=== PATIENT | female | born 1955 | race Caucasian/White ===

== ENCOUNTER 2021-08-15 09:26 | Outpatient (CLI) | payer MEDICARE | END 2021-08-15 09:27 | disposition home or self-care (01) | LOC: CSHWCC 09:26 | PROVIDERS: ATTEND Nurse Practitioner Family | DX: I87.332 Chronic venous hypertension (idiopathic) with ulcer and inflammation of left lower extremity (principal); L97.322 Non-pressure chronic ulcer of left ankle with fat layer exposed; R60.0 Localized edema; I87.331 Chronic venous hypertension (idiopathic) with ulcer and inflammation of right lower extremity; L97.312 Non-pressure chronic ulcer of right ankle with fat layer exposed | CPT/HCPCS: 97139; G0463; 99213 ==

== ENCOUNTER 2021-08-29 09:16 | Outpatient (CLI) | payer MEDICARE | END 2021-08-29 09:17 | disposition home or self-care (01) | LOC: CSHWCC 09:16 | PROVIDERS: ATTEND Nurse Practitioner Family | DX: I87.333 Chronic venous hypertension (idiopathic) with ulcer and inflammation of bilateral lower extremity (principal); L97.322 Non-pressure chronic ulcer of left ankle with fat layer exposed; L97.312 Non-pressure chronic ulcer of right ankle with fat layer exposed; R60.0 Localized edema ==

== ENCOUNTER 2021-09-12 10:48 | Outpatient (CLI) | payer MEDICARE | END 2021-09-12 10:49 | disposition home or self-care (01) | LOC: CSHWCC 10:48 | PROVIDERS: ATTEND Nurse Practitioner Family | DX: I87.332 Chronic venous hypertension (idiopathic) with ulcer and inflammation of left lower extremity (principal); L97.322 Non-pressure chronic ulcer of left ankle with fat layer exposed; R60.0 Localized edema ==

== ENCOUNTER 2021-10-03 10:43 | Outpatient (CLI) | payer MEDICARE | END 2021-10-03 10:44 | disposition home or self-care (01) | LOC: CSHWCC 10:43 | PROVIDERS: ATTEND Nurse Practitioner Family | DX: I87.333 Chronic venous hypertension (idiopathic) with ulcer and inflammation of bilateral lower extremity (principal); L97.322 Non-pressure chronic ulcer of left ankle with fat layer exposed; L97.312 Non-pressure chronic ulcer of right ankle with fat layer exposed; R60.0 Localized edema ==

== ENCOUNTER 2021-10-24 10:27 | Outpatient (CLI) | payer MEDICARE | END 2021-10-24 10:28 | disposition home or self-care (01) | LOC: CSHWCC 10:27 | PROVIDERS: ATTEND Nurse Practitioner Family | DX: I87.333 Chronic venous hypertension (idiopathic) with ulcer and inflammation of bilateral lower extremity (principal); L97.312 Non-pressure chronic ulcer of right ankle with fat layer exposed; L97.322 Non-pressure chronic ulcer of left ankle with fat layer exposed; R60.0 Localized edema ==

== ENCOUNTER 2021-11-21 10:33 | Outpatient (CLI) | payer MEDICARE | END 2021-11-21 10:34 | disposition home or self-care (01) | LOC: CSHWCC 10:33 | PROVIDERS: ATTEND Nurse Practitioner Family | DX: I87.332 Chronic venous hypertension (idiopathic) with ulcer and inflammation of left lower extremity (principal); L97.322 Non-pressure chronic ulcer of left ankle with fat layer exposed; R60.0 Localized edema | CPT/HCPCS: 99213; G0463 ==

== ENCOUNTER 2021-12-19 10:26 | Outpatient (CLI) | payer MEDICARE | END 2021-12-19 10:27 | disposition home or self-care (01) | LOC: CSHWCC 10:26 | PROVIDERS: ATTEND Preventive Medicine Undersea and Hyperbaric Medicine | DX: I87.332 Chronic venous hypertension (idiopathic) with ulcer and inflammation of left lower extremity (principal); L97.322 Non-pressure chronic ulcer of left ankle with fat layer exposed; R60.0 Localized edema ==

== ENCOUNTER 2023-03-19 11:22 | Outpatient (CLI) | payer MEDICARE | END 2023-03-19 11:23 | disposition home or self-care (01) | LOC: CSHWCC 11:22 | PROVIDERS: ATTEND Nurse Practitioner Family | DX: I87.312 Chronic venous hypertension (idiopathic) with ulcer of left lower extremity (principal); I70.243 Atherosclerosis of native arteries of left leg with ulceration of ankle; L03.116 Cellulitis of left lower limb; I73.9 Peripheral vascular disease, unspecified; L97.929 Non-pressure chronic ulcer of unspecified part of left lower leg with unspecified severity | CPT/HCPCS: 87070; 87077; 87186; 87205; G0463; 99214 ==

== ENCOUNTER 2023-03-26 11:45 | Outpatient (CLI) | payer MEDICARE | END 2023-03-26 11:46 | disposition home or self-care (01) | LOC: CSHWCC 11:45 | PROVIDERS: ATTEND Preventive Medicine Undersea and Hyperbaric Medicine | DX: I70.243 Atherosclerosis of native arteries of left leg with ulceration of ankle (principal); I87.312 Chronic venous hypertension (idiopathic) with ulcer of left lower extremity; L97.929 Non-pressure chronic ulcer of unspecified part of left lower leg with unspecified severity; L03.116 Cellulitis of left lower limb | CPT/HCPCS: 99213; G0463 ==

== ENCOUNTER 2023-04-15 13:52 | Outpatient (CLI) | payer MEDICARE | END 2023-04-15 13:53 | disposition home or self-care (01) | LOC: CSHWCC 13:52 | PROVIDERS: ATTEND Nurse Practitioner Family | DX: I87.312 Chronic venous hypertension (idiopathic) with ulcer of left lower extremity (principal); L97.929 Non-pressure chronic ulcer of unspecified part of left lower leg with unspecified severity; I70.243 Atherosclerosis of native arteries of left leg with ulceration of ankle; I70.212 Atherosclerosis of native arteries of extremities with intermittent claudication, left leg | CPT/HCPCS: 11043; 11046 ==

== ENCOUNTER 2023-04-23 14:23 | Outpatient (CLI) | payer MEDICARE | END 2023-04-23 14:24 | disposition home or self-care (01) | LOC: CSHWCC 14:23 | PROVIDERS: ATTEND Nurse Practitioner Family | DX: I87.312 Chronic venous hypertension (idiopathic) with ulcer of left lower extremity (principal); I70.243 Atherosclerosis of native arteries of left leg with ulceration of ankle; L97.929 Non-pressure chronic ulcer of unspecified part of left lower leg with unspecified severity | CPT/HCPCS: 97597; 97598 ==

== ENCOUNTER 2023-04-30 13:04 | Outpatient (CLI) | payer MEDICARE | END 2023-04-30 13:05 | disposition home or self-care (01) | LOC: CSHWCC 13:04 | PROVIDERS: ATTEND Nurse Practitioner Family | DX: I87.312 Chronic venous hypertension (idiopathic) with ulcer of left lower extremity (principal); I70.243 Atherosclerosis of native arteries of left leg with ulceration of ankle; L97.929 Non-pressure chronic ulcer of unspecified part of left lower leg with unspecified severity | CPT/HCPCS: 11043; 11046 ==

== ENCOUNTER 2023-05-07 15:05 | Outpatient (CLI) | payer MEDICARE | END 2023-05-07 15:06 | disposition home or self-care (01) | LOC: CSHWCC 15:05 | PROVIDERS: ATTEND Nurse Practitioner Family | DX: I87.312 Chronic venous hypertension (idiopathic) with ulcer of left lower extremity (principal); I70.243 Atherosclerosis of native arteries of left leg with ulceration of ankle; I70.212 Atherosclerosis of native arteries of extremities with intermittent claudication, left leg; L97.929 Non-pressure chronic ulcer of unspecified part of left lower leg with unspecified severity | CPT/HCPCS: 11042; 11045 ==

== ENCOUNTER 2023-06-04 17:12 | Outpatient (CLI) | payer MEDICARE | END 2023-06-04 17:13 | disposition home or self-care (01) | LOC: CSHWCC 17:12 | PROVIDERS: ATTEND Nurse Practitioner Family | DX: I70.243 Atherosclerosis of native arteries of left leg with ulceration of ankle (principal); I87.312 Chronic venous hypertension (idiopathic) with ulcer of left lower extremity | CPT/HCPCS: 11042; 11045 ==

== ENCOUNTER 2023-07-14 10:45 | Outpatient (CLI) | payer MEDICARE | END 2023-07-14 10:46 | disposition home or self-care (01) | LOC: CSHWCC 10:45 | PROVIDERS: ATTEND Family Medicine | DX: I87.312 Chronic venous hypertension (idiopathic) with ulcer of left lower extremity (principal); I70.243 Atherosclerosis of native arteries of left leg with ulceration of ankle; I73.9 Peripheral vascular disease, unspecified | CPT/HCPCS: 97597; 97598 ==

== ENCOUNTER 2023-07-17 13:06 | Outpatient (CLI) | payer MEDICARE | END 2023-07-17 13:07 | disposition home or self-care (01) | LOC: CSHWCC 13:06 | PROVIDERS: ATTEND Nurse Practitioner Family | DX: I87.312 Chronic venous hypertension (idiopathic) with ulcer of left lower extremity (principal); L97.929 Non-pressure chronic ulcer of unspecified part of left lower leg with unspecified severity; I70.243 Atherosclerosis of native arteries of left leg with ulceration of ankle | CPT/HCPCS: 29581 ==

== ENCOUNTER 2023-07-21 15:41 | Outpatient (CLI) | payer MEDICARE | END 2023-07-21 15:42 | disposition home or self-care (01) | LOC: CSHWCC 15:41 | PROVIDERS: ATTEND Nurse Practitioner Family | DX: I87.312 Chronic venous hypertension (idiopathic) with ulcer of left lower extremity (principal); L97.929 Non-pressure chronic ulcer of unspecified part of left lower leg with unspecified severity; I70.243 Atherosclerosis of native arteries of left leg with ulceration of ankle | CPT/HCPCS: 11042 ==

== ENCOUNTER 2023-07-28 10:55 | Outpatient (CLI) | payer MEDICARE | END 2023-07-28 10:56 | disposition home or self-care (01) | LOC: CSHWCC 10:55 | PROVIDERS: ATTEND Nurse Practitioner Family | DX: I87.312 Chronic venous hypertension (idiopathic) with ulcer of left lower extremity (principal); L97.929 Non-pressure chronic ulcer of unspecified part of left lower leg with unspecified severity; I70.243 Atherosclerosis of native arteries of left leg with ulceration of ankle | CPT/HCPCS: 11042 ==

== ENCOUNTER 2023-08-13 11:58 | Outpatient (CLI) | payer MEDICARE | END 2023-08-13 11:59 | disposition home or self-care (01) | LOC: CSHWCC 11:58 | PROVIDERS: ATTEND Nurse Practitioner Family | DX: I87.312 Chronic venous hypertension (idiopathic) with ulcer of left lower extremity (principal); I70.243 Atherosclerosis of native arteries of left leg with ulceration of ankle; I70.212 Atherosclerosis of native arteries of extremities with intermittent claudication, left leg | CPT/HCPCS: 11042 ==

== ENCOUNTER 2023-08-20 11:17 | Outpatient (CLI) | payer MEDICARE | END 2023-08-20 11:18 | disposition home or self-care (01) | LOC: CSHWCC 11:17 | PROVIDERS: ATTEND Nurse Practitioner Family | DX: I87.312 Chronic venous hypertension (idiopathic) with ulcer of left lower extremity (principal); L97.929 Non-pressure chronic ulcer of unspecified part of left lower leg with unspecified severity; I70.243 Atherosclerosis of native arteries of left leg with ulceration of ankle | CPT/HCPCS: 11042 ==

== ENCOUNTER 2023-08-27 12:53 | Outpatient (CLI) | payer MEDICARE | END 2023-08-27 12:54 | disposition home or self-care (01) | LOC: CSHWCC 12:53 | PROVIDERS: ATTEND Nurse Practitioner Family | DX: I70.243 Atherosclerosis of native arteries of left leg with ulceration of ankle (principal); I87.312 Chronic venous hypertension (idiopathic) with ulcer of left lower extremity; L97.329 Non-pressure chronic ulcer of left ankle with unspecified severity | CPT/HCPCS: 11042 ==

== ENCOUNTER 2023-09-03 11:34 | Outpatient (CLI) | payer MEDICARE | END 2023-09-03 11:35 | disposition home or self-care (01) | LOC: CSHWCC 11:34 | PROVIDERS: ATTEND Nurse Practitioner Family | DX: I70.243 Atherosclerosis of native arteries of left leg with ulceration of ankle (principal); I87.312 Chronic venous hypertension (idiopathic) with ulcer of left lower extremity; L97.329 Non-pressure chronic ulcer of left ankle with unspecified severity | CPT/HCPCS: 11042 ==

== ENCOUNTER 2023-09-09 11:46 | Outpatient (CLI) | payer MEDICARE | END 2023-09-09 11:47 | disposition home or self-care (01) | LOC: CSHWCC 11:46 | PROVIDERS: ATTEND Nurse Practitioner Family | DX: I70.243 Atherosclerosis of native arteries of left leg with ulceration of ankle (principal); I87.312 Chronic venous hypertension (idiopathic) with ulcer of left lower extremity; L97.322 Non-pressure chronic ulcer of left ankle with fat layer exposed | CPT/HCPCS: 11042 ==

== ENCOUNTER 2023-09-17 14:36 | Outpatient (CLI) | payer MEDICARE | END 2023-09-17 14:37 | disposition home or self-care (01) | LOC: CSHWCC 14:36 | PROVIDERS: ATTEND Nurse Practitioner Family | DX: I70.243 Atherosclerosis of native arteries of left leg with ulceration of ankle (principal); I87.312 Chronic venous hypertension (idiopathic) with ulcer of left lower extremity; L97.322 Non-pressure chronic ulcer of left ankle with fat layer exposed | CPT/HCPCS: 11042 ==

== ENCOUNTER 2023-09-24 13:05 | Outpatient (CLI) | payer MEDICARE | END 2023-09-24 13:06 | disposition home or self-care (01) | LOC: CSHWCC 13:05 | PROVIDERS: ATTEND Nurse Practitioner Family | DX: I87.312 Chronic venous hypertension (idiopathic) with ulcer of left lower extremity (principal); I70.243 Atherosclerosis of native arteries of left leg with ulceration of ankle; L97.322 Non-pressure chronic ulcer of left ankle with fat layer exposed | CPT/HCPCS: 11042 ==

== ENCOUNTER 2023-10-01 14:16 | Outpatient (CLI) | payer MEDICARE | END 2023-10-01 14:17 | disposition home or self-care (01) | LOC: CSHWCC 14:16 | PROVIDERS: ATTEND Nurse Practitioner Family | DX: I87.312 Chronic venous hypertension (idiopathic) with ulcer of left lower extremity (principal); I70.243 Atherosclerosis of native arteries of left leg with ulceration of ankle; L97.322 Non-pressure chronic ulcer of left ankle with fat layer exposed; I70.212 Atherosclerosis of native arteries of extremities with intermittent claudication, left leg | CPT/HCPCS: 11042 ==

== ENCOUNTER 2023-10-08 10:41 | Outpatient (CLI) | payer MEDICARE | END 2023-10-08 10:42 | disposition home or self-care (01) | LOC: CSHWCC 10:41 | PROVIDERS: ATTEND Nurse Practitioner Family | DX: I87.312 Chronic venous hypertension (idiopathic) with ulcer of left lower extremity (principal); L97.322 Non-pressure chronic ulcer of left ankle with fat layer exposed; I70.243 Atherosclerosis of native arteries of left leg with ulceration of ankle | CPT/HCPCS: 11042 ==

== ENCOUNTER 2023-12-03 14:07 | Outpatient (CLI) | payer MEDICARE | END 2023-12-03 14:08 | disposition home or self-care (01) | LOC: CSHWCC 14:07 | PROVIDERS: ATTEND Nurse Practitioner Family | DX: I87.312 Chronic venous hypertension (idiopathic) with ulcer of left lower extremity (principal); L97.322 Non-pressure chronic ulcer of left ankle with fat layer exposed; I70.243 Atherosclerosis of native arteries of left leg with ulceration of ankle | CPT/HCPCS: 11042; 97605 ==

== ENCOUNTER 2023-12-09 09:59 | Outpatient (CLI) | payer MEDICARE | END 2023-12-09 10:00 | disposition home or self-care (01) | LOC: CSHWCC 09:59 | PROVIDERS: ATTEND Nurse Practitioner Family | DX: I70.243 Atherosclerosis of native arteries of left leg with ulceration of ankle (principal); I87.312 Chronic venous hypertension (idiopathic) with ulcer of left lower extremity; L97.322 Non-pressure chronic ulcer of left ankle with fat layer exposed | CPT/HCPCS: 11042; 97605 ==

== ENCOUNTER 2023-12-17 10:25 | Outpatient (CLI) | payer MEDICARE | END 2023-12-17 10:26 | disposition home or self-care (01) | LOC: CSHWCC 10:25 | PROVIDERS: ATTEND Nurse Practitioner Family | DX: I70.243 Atherosclerosis of native arteries of left leg with ulceration of ankle (principal); I87.312 Chronic venous hypertension (idiopathic) with ulcer of left lower extremity; L97.322 Non-pressure chronic ulcer of left ankle with fat layer exposed | CPT/HCPCS: 11042; 97605 ==

== ENCOUNTER 2023-12-24 12:48 | Outpatient (CLI) | payer MEDICARE | END 2023-12-24 12:49 | disposition home or self-care (01) | LOC: CSHWCC 12:48 | PROVIDERS: ATTEND Nurse Practitioner Family | DX: I70.243 Atherosclerosis of native arteries of left leg with ulceration of ankle (principal); I87.312 Chronic venous hypertension (idiopathic) with ulcer of left lower extremity; L97.322 Non-pressure chronic ulcer of left ankle with fat layer exposed | CPT/HCPCS: 11042; 11045; 87070; 87205; 97605 ==

== ENCOUNTER 2023-12-31 12:13 | Outpatient (CLI) | payer MEDICARE | END 2023-12-31 12:14 | disposition home or self-care (01) | LOC: CSHWCC 12:13 | PROVIDERS: ATTEND Nurse Practitioner Family | DX: I87.312 Chronic venous hypertension (idiopathic) with ulcer of left lower extremity (principal); I70.243 Atherosclerosis of native arteries of left leg with ulceration of ankle; L97.322 Non-pressure chronic ulcer of left ankle with fat layer exposed | CPT/HCPCS: 11042; 97605 ==

== ENCOUNTER 2024-01-07 11:31 | Outpatient (CLI) | payer MEDICARE | END 2024-01-07 11:32 | disposition home or self-care (01) | LOC: CSHWCC 11:31 | PROVIDERS: ATTEND Nurse Practitioner Family | DX: I87.312 Chronic venous hypertension (idiopathic) with ulcer of left lower extremity (principal); L97.322 Non-pressure chronic ulcer of left ankle with fat layer exposed; I70.243 Atherosclerosis of native arteries of left leg with ulceration of ankle | CPT/HCPCS: 11042 ==

== ENCOUNTER 2024-01-15 12:00 | Outpatient (CLI) | payer MEDICARE | END 2024-01-15 12:01 | disposition home or self-care (01) | LOC: CSHWCC 12:00 | PROVIDERS: ATTEND Nurse Practitioner Family | DX: I87.312 Chronic venous hypertension (idiopathic) with ulcer of left lower extremity (principal); L97.322 Non-pressure chronic ulcer of left ankle with fat layer exposed; I70.243 Atherosclerosis of native arteries of left leg with ulceration of ankle; L08.9 Local infection of the skin and subcutaneous tissue, unspecified | CPT/HCPCS: 11042; 87070; 87205; 97605; G0463; 99212 ==

== ENCOUNTER 2024-01-21 10:28 | Outpatient (CLI) | payer MEDICARE | END 2024-01-21 10:29 | disposition home or self-care (01) | LOC: CSHWCC 10:28 | PROVIDERS: ATTEND Nurse Practitioner Family | DX: I87.312 Chronic venous hypertension (idiopathic) with ulcer of left lower extremity (principal); L97.322 Non-pressure chronic ulcer of left ankle with fat layer exposed; I70.243 Atherosclerosis of native arteries of left leg with ulceration of ankle; L08.9 Local infection of the skin and subcutaneous tissue, unspecified | CPT/HCPCS: 11042; 97605 ==

== ENCOUNTER 2024-01-28 11:56 | Outpatient (CLI) | payer MEDICARE | END 2024-01-28 11:57 | disposition home or self-care (01) | LOC: CSHWCC 11:56 | PROVIDERS: ATTEND Nurse Practitioner Family | DX: I87.312 Chronic venous hypertension (idiopathic) with ulcer of left lower extremity (principal); I70.243 Atherosclerosis of native arteries of left leg with ulceration of ankle; L97.322 Non-pressure chronic ulcer of left ankle with fat layer exposed; L08.9 Local infection of the skin and subcutaneous tissue, unspecified | CPT/HCPCS: 11042; 97605 ==

== ENCOUNTER 2024-02-04 08:52 | Outpatient (CLI) | payer MEDICARE | END 2024-02-04 08:53 | disposition home or self-care (01) | LOC: CSHWCC 08:52 | PROVIDERS: ATTEND Nurse Practitioner Family | DX: I87.312 Chronic venous hypertension (idiopathic) with ulcer of left lower extremity (principal); L97.322 Non-pressure chronic ulcer of left ankle with fat layer exposed; I70.243 Atherosclerosis of native arteries of left leg with ulceration of ankle; L08.9 Local infection of the skin and subcutaneous tissue, unspecified | CPT/HCPCS: 11042; 97605 ==

== ENCOUNTER 2024-02-12 14:38 | Outpatient (CLI) | payer MEDICARE | END 2024-02-12 14:39 | disposition home or self-care (01) | LOC: CSHWCC 14:38 | PROVIDERS: ATTEND Family Medicine | DX: I70.243 Atherosclerosis of native arteries of left leg with ulceration of ankle (principal); I87.312 Chronic venous hypertension (idiopathic) with ulcer of left lower extremity; L97.322 Non-pressure chronic ulcer of left ankle with fat layer exposed; L08.9 Local infection of the skin and subcutaneous tissue, unspecified | CPT/HCPCS: 97607 ==

== ENCOUNTER 2024-02-18 12:08 | Outpatient (CLI) | payer MEDICARE | END 2024-02-18 12:09 | disposition home or self-care (01) | LOC: CSHWCC 12:08 | PROVIDERS: ATTEND Nurse Practitioner Family | DX: I70.243 Atherosclerosis of native arteries of left leg with ulceration of ankle (principal); I87.312 Chronic venous hypertension (idiopathic) with ulcer of left lower extremity; L97.322 Non-pressure chronic ulcer of left ankle with fat layer exposed; L08.9 Local infection of the skin and subcutaneous tissue, unspecified | CPT/HCPCS: 11042; 97605 ==

== ENCOUNTER 2024-02-25 11:41 | Outpatient (CLI) | payer MEDICARE | END 2024-02-25 11:42 | disposition home or self-care (01) | LOC: CSHWCC 11:41 | PROVIDERS: ATTEND Nurse Practitioner Family | DX: I87.312 Chronic venous hypertension (idiopathic) with ulcer of left lower extremity (principal); I70.243 Atherosclerosis of native arteries of left leg with ulceration of ankle; L97.322 Non-pressure chronic ulcer of left ankle with fat layer exposed; I73.9 Peripheral vascular disease, unspecified; L08.9 Local infection of the skin and subcutaneous tissue, unspecified | CPT/HCPCS: 11042; 97605 ==

== ENCOUNTER 2024-03-01 12:01 | Outpatient (CLI) | payer MEDICARE | END 2024-03-01 12:02 | disposition home or self-care (01) | LOC: CSHWCC 12:01 | PROVIDERS: ATTEND Nurse Practitioner Family | DX: I87.312 Chronic venous hypertension (idiopathic) with ulcer of left lower extremity (principal); L97.322 Non-pressure chronic ulcer of left ankle with fat layer exposed; I70.243 Atherosclerosis of native arteries of left leg with ulceration of ankle; L08.9 Local infection of the skin and subcutaneous tissue, unspecified | CPT/HCPCS: 11042; 97605 ==

== ENCOUNTER 2024-03-09 12:41 | Outpatient (CLI) | payer MEDICARE | END 2024-03-09 12:42 | disposition home or self-care (01) | LOC: CSHWCC 12:41 | PROVIDERS: ATTEND Nurse Practitioner Family | DX: I87.312 Chronic venous hypertension (idiopathic) with ulcer of left lower extremity (principal); I70.243 Atherosclerosis of native arteries of left leg with ulceration of ankle; L97.322 Non-pressure chronic ulcer of left ankle with fat layer exposed; L08.9 Local infection of the skin and subcutaneous tissue, unspecified | CPT/HCPCS: 11042; 97607 ==